=== PATIENT | female | born 1960 | race Caucasian/White ===

== ENCOUNTER 2023-06-15 10:02 | Inpatient (IN) | payer MEDICAID ==
[~2023-06-15] VITALS: Ht 152.4 cm; Wt 67.3 kg
[2023-06-15] MEDS ORDERED: ondansetron/PF 4mg/2ml inj IV ONE (11:35)
[2023-06-15] MEDS ORDERED: pantoprazole 40 MG vial IV ONE (11:35)
[2023-06-15] MEDS ORDERED: morphine 2 MG/ML inj. syringe IV PRN (11:35)
[2023-06-15] MEDS ORDERED: normal saline 1000ML IV soln IVB ONE (11:35)
[2023-06-15] MEDS ORDERED: pantoprazole 40MG/NS 100ML BAG 100 ML IV ONE (11:50)
--- NOTE | 2023-06-15 12:18 | NUR ---
MORPHINE ORD FOR PAIN. PT HAS ALLERGY TO CODIENE AND DOES NOT KNOW IF SHE HAS HAD IT BEFORE. RN NON ADMIN AND NOTIFIED DR MEREDITH. PER DR MEREDITH HOLD MORPHINE AT THIS TIME AND DO NOT ADMIN.
--- NOTE | 2023-06-15 12:33 | NUR ---
LAB AT BEDSIDE COLLECTING BLOOD
[2023-06-15 12:48] LABS: BASOPHILS % (AUTO) 0.2 % (0-1); EOSINOPHILS % (AUTO) 0.1 % (0-6); HEMATOCRIT 41.7 % (35.0-45.0); HEMOGLOBIN 13.9 g/dl (12.0-16.0); LYMPHOCYTES % (AUTO) 5.1 % (21-51); MEAN CORPUSCULAR HEMOGLOBIN 28.7 PG (27.0-31.0); MEAN CORPUSCULAR HGB CONC 33.3 g/dL (33.0-36.5); MEAN CORPUSCULAR VOLUME 86.1 FL (78-98); MEAN PLATELET VOLUME 7.2 FL (7.4-10.4); MONOCYTES # (AUTO) 1.2 X10'3 (0-0.9); MONOCYTES % (AUTO) 6.1 % (2-12); NEUTROPHILS # (AUTO) 17.5 X10'3 (1.8-7.7); NEUTROPHILS % (AUTO) 88.5 % (42-75); PLATELET COUNT 314 X10'3 (140-440); RED BLOOD COUNT 4.84 X10'6 (4.20-5.60); RED CELL DISTRIBUTION WIDTH 14.4 % (11.5-14.5); WHITE BLOOD COUNT 19.8 X10'3 (4.5-11.0)
[2023-06-15 13:10] LABS: ALANINE AMINOTRANSFERASE 20 U/L (12-78); ALBUMIN 3.7 G/DL (3.4-5.0); ALBUMIN/GLOBULIN RATIO 0.9 (1.1-1.5); ALKALINE PHOSPHATASE 114 IU/L (46-116); ANION GAP 9 (8-16); ASPARTATE AMINO TRANSFERASE 25 U/L (10-37); BILIRUBIN,TOTAL 0.6 MG/DL (0.1-1.0); BLOOD UREA NITROGEN 13 MG/DL (7-18); BUN/CREATININE RATIO 13.7 (10.0-20.0); CALCIUM 9.1 MG/DL (8.5-10.1); CHLORIDE 105 MMOL/L (99-107); CREATININE 0.95 MG/DL (0.40-0.90); GLUCOSE 119 MG/DL (70-104); LIPASE 105 U/L (73-393); POTASSIUM 3.9 MMOL/L (3.5-5.1); SODIUM 139 MMOL/L (135-145); TOTAL CARBON DIOXIDE 25.4 MMOL/L (24-32); eCRCL 44 ML/MIN; eGFR 60 ML/MIN
[2023-06-15] MEDS ORDERED: iohexol 300mg/ml 100ml inj. ONE (13:59)
[2023-06-15] MEDS ORDERED: metroNIDAZOLE-Flagyl 500mg/NS 100 ML IV STA (15:00)
[2023-06-15 15:10] LABS: BILIRUBIN,URINE NEGATIVE (Neg); CLARITY,URINE CLEAR (Clear); COLOR,URINE YELLOW (Yellow); GLUCOSE, URINE NEGATIVE (Neg); KETONES,URINE NEGATIVE (Neg); LEUKOCYTE ESTERASE ,URINE NEGATIVE (Neg); NITRITES, URINE NEGATIVE (Neg); OCCULT BLOOD,URINE NEGATIVE (Neg); PH,URINE 5.5 (4.8-8.0); PROTEIN,URINE NEGATIVE (Neg); UROBILINOGEN,URINE 0.2 E.U/dL (0.2-1.0)
[2023-06-15 15:15] LABS: UA COLLECTION TYPE CLN CATCH MIDSTREAM
[2023-06-15] MEDS ORDERED: HYDROcodone/acetaminophen 5mg/325mg tablet PO PRN (17:40)
[2023-06-15] MEDS ORDERED: magnesium 4gm in 100ml NS 100 ML IV PRN (17:40)
[2023-06-15] MEDS ORDERED: ondansetron/PF 4mg/2ml inj IV PRN (17:40)
[2023-06-15] MEDS ORDERED: mag hydrox/Alum hydrox/simeth 30ml oral suspension PO PRN (17:40)
[2023-06-15] MEDS ORDERED: magnesium 2GM in 50ml NS 50 ML IV PRN (17:40)
[2023-06-15] MEDS ORDERED: potassium Cl 40MEQ/1/2NS 520ml 520 ML IV PRN (17:40)
[2023-06-15] MEDS ORDERED: acetaminophen 325mg tablet PO PRN ×2 (17:40)
[2023-06-15] MEDS ORDERED: potassium Cl 20 mEq SR tablet PO PRN ×2 (17:40)
[2023-06-15] MEDS ORDERED: HYDROcodone/acetaminophen 10/325mg tab PO PRN (17:40)
[2023-06-15] MEDS: normal saline 1000ml 1,000 ML IV SCH (19:09)
[2023-06-15] MEDS ORDERED: hydrALAZINE 20mg/ml inj. IV PRN (19:40)
[2023-06-15] MEDS: K and/or MAG REPLACEMENT MC SCH (20:02)
[2023-06-15] MEDS: ciprofloxacin lact 400MG/200ML 200 ML IV SCH (20:31)
[2023-06-15] MEDS: HYDROmorphone inj. 0.5 MG/0.5 ML DISP.SYRIN IV PRN (20:38)
[2023-06-15] MEDS: docusate sod 100mg capsule PO SCH (20:44)
[2023-06-15] MEDS: enoxaparin 40mg/0.4ml syringe SQ SCH (20:45)
--- NOTE | 2023-06-15 22:04 | NUR ---
Rec'd report for STONEY Roberson in the ER.
[2023-06-15 22:30] VITALS: BP 129/44; PULSE 67; RESP 18; TEMP 98.1; O2SAT 97
[2023-06-16] MEDS: metroNIDAZOLE-Flagyl 500mg/NS 100 ML IV SCH ×4 (00:02→23:19)
[2023-06-16] MEDS: HYDROmorphone inj. 0.5 MG/0.5 ML DISP.SYRIN IV PRN ×3 (00:06→20:48)
[2023-06-16] MEDS: normal saline 1000ml 1,000 ML IV SCH ×3 (04:14→23:40)
[2023-06-16 06:00] VITALS: BP 110/54; PULSE 67; RESP 16; TEMP 98.6; O2SAT 96
--- NOTE | 2023-06-16 06:35 | NUR ---
Problems reprioritized. Patient report given, questions answered & plan of care reviewed with JERICHO Archuleta.
[2023-06-16 06:36] LABS: BASOPHILS # (AUTO) 0.1 X10'3 (0-0.2); BASOPHILS % (AUTO) 0.4 % (0-1); EOSINOPHILS # (AUTO) 0.1 X10'3 (0-0.9); EOSINOPHILS % (AUTO) 0.3 % (0-6); HEMATOCRIT 33.5 % (35.0-45.0); HEMOGLOBIN 11.1 g/dl (12.0-16.0); LYMPHOCYTES # (AUTO) 1.7 X10'3 (1.1-4.8); LYMPHOCYTES % (AUTO) 10.4 % (21-51); MEAN CORPUSCULAR HEMOGLOBIN 28.8 PG (27.0-31.0); MEAN CORPUSCULAR VOLUME 87.3 FL (78-98); MEAN PLATELET VOLUME 7.6 FL (7.4-10.4); MONOCYTES # (AUTO) 1.1 X10'3 (0-0.9); NEUTROPHILS # (AUTO) 13.2 X10'3 (1.8-7.7); NEUTROPHILS % (AUTO) 81.9 % (42-75); PLATELET COUNT 244 X10'3 (140-440); RED BLOOD COUNT 3.84 X10'6 (4.20-5.60); RED CELL DISTRIBUTION WIDTH 14.3 % (11.5-14.5); WHITE BLOOD COUNT 16.2 X10'3 (4.5-11.0)
[2023-06-16 07:06] LABS: ALANINE AMINOTRANSFERASE 13 U/L (12-78); ALBUMIN 2.5 G/DL (3.4-5.0); ALBUMIN/GLOBULIN RATIO 0.7 (1.1-1.5); ALKALINE PHOSPHATASE 83 IU/L (46-116); ANION GAP 8 (8-16); ASPARTATE AMINO TRANSFERASE 20 U/L (10-37); BILIRUBIN,TOTAL 0.7 MG/DL (0.1-1.0); BLOOD UREA NITROGEN 9 MG/DL (7-18); CHLORIDE 109 MMOL/L (99-107); GLUCOSE 102 MG/DL (70-104); MAGNESIUM 1.8 MG/DL (1.5-2.4); POTASSIUM 3.7 MMOL/L (3.5-5.1); SODIUM 140 MMOL/L (135-145); TOTAL CARBON DIOXIDE 23.1 MMOL/L (24-32); eCRCL 47 ML/MIN; eGFR 63 ML/MIN
[2023-06-16] MEDS: docusate sod 100mg capsule PO SCH ×2 (07:47→20:38)
[2023-06-16 07:52] VITALS: RESP 18
[2023-06-16] MEDS: K and/or MAG REPLACEMENT MC SCH ×2 (08:00→20:00)
[2023-06-16 10:00] VITALS: BP 108/79; PULSE 70; RESP 16; TEMP 98.7; O2SAT 95
[2023-06-16] MEDS: ciprofloxacin lact 400MG/200ML 200 ML IV SCH ×2 (11:47→20:39)
[2023-06-16] MEDS ORDERED: LEVO25TA7 PO (13:45)
[2023-06-16 18:00] VITALS: BP 126/54; PULSE 65; RESP 16; TEMP 97.6; O2SAT 96
--- NOTE | 2023-06-16 18:15 | NUR ---
Patient in room [facility]. I have received report from Kathe ECHAVARRIA and had the opportunity to ask questions and assume patient care.
[2023-06-16 20:00] VITALS: RESP 16
[2023-06-16] MEDS: enoxaparin 40mg/0.4ml syringe SQ SCH (20:39)
[2023-06-16 22:00] VITALS: BP 119/54; PULSE 71; RESP 16; TEMP 97.8; O2SAT 94
[2023-06-17] VITALS (7 sets, daily range): BP systolic 115–149; BP diastolic 53–70; PULSE 63–73; RESP 15–18; TEMP 97.9–98.5; O2SAT 93–96
[2023-06-17] MEDS: normal saline 1000ml 1,000 ML IV SCH ×2 (03:03→16:24)
[2023-06-17] MEDS: HYDROmorphone inj. 0.5 MG/0.5 ML DISP.SYRIN IV PRN (03:07)
[2023-06-17 06:19] LABS: BASOPHILS # (AUTO) 0.1 X10'3 (0-0.2); BASOPHILS % (AUTO) 0.6 % (0-1); EOSINOPHILS # (AUTO) 0.1 X10'3 (0-0.9); EOSINOPHILS % (AUTO) 0.7 % (0-6); HEMATOCRIT 30.7 % (35.0-45.0); HEMOGLOBIN 10.1 g/dl (12.0-16.0); LYMPHOCYTES # (AUTO) 1.6 X10'3 (1.1-4.8); LYMPHOCYTES % (AUTO) 11.5 % (21-51); MEAN CORPUSCULAR HEMOGLOBIN 28.8 PG (27.0-31.0); MEAN CORPUSCULAR HGB CONC 32.8 g/dL (33.0-36.5); MEAN CORPUSCULAR VOLUME 87.9 FL (78-98); MEAN PLATELET VOLUME 7.3 FL (7.4-10.4); MONOCYTES # (AUTO) 0.9 X10'3 (0-0.9); MONOCYTES % (AUTO) 6.7 % (2-12); NEUTROPHILS # (AUTO) 11.3 X10'3 (1.8-7.7); NEUTROPHILS % (AUTO) 80.5 % (42-75); PLATELET COUNT 226 X10'3 (140-440); RED BLOOD COUNT 3.49 X10'6 (4.20-5.60); RED CELL DISTRIBUTION WIDTH 14.2 % (11.5-14.5)
[2023-06-17 06:32] LABS: ALANINE AMINOTRANSFERASE 9 U/L (12-78); ALBUMIN 2.4 G/DL (3.4-5.0); ALBUMIN/GLOBULIN RATIO 0.7 (1.1-1.5); ALKALINE PHOSPHATASE 74 IU/L (46-116); ANION GAP 10 (8-16); ASPARTATE AMINO TRANSFERASE 17 U/L (10-37); BILIRUBIN,TOTAL 0.5 MG/DL (0.1-1.0); BLOOD UREA NITROGEN 8 MG/DL (7-18); BUN/CREATININE RATIO 9.4 (10.0-20.0); CHLORIDE 108 MMOL/L (99-107); CREATININE 0.85 MG/DL (0.40-0.90); GLUCOSE 87 MG/DL (70-104); MAGNESIUM 1.6 MG/DL (1.5-2.4); POTASSIUM 3.6 MMOL/L (3.5-5.1); SODIUM 138 MMOL/L (135-145); TOTAL CARBON DIOXIDE 19.6 MMOL/L (24-32); TOTAL PROTEIN 5.8 G/DL (6.4-8.2); eCRCL 49 ML/MIN; eGFR 68 ML/MIN
--- NOTE | 2023-06-17 06:54 | NUR ---
Problems reprioritized. Patient report given, questions answered & plan of care reviewed with Kathe ECHAVARRIA.
[2023-06-17] MEDS: K and/or MAG REPLACEMENT MC SCH ×2 (08:00→20:00)
[2023-06-17] MEDS: levoTHYROXINE 25mcg tablet PO SCH (08:37)
[2023-06-17] MEDS: ciprofloxacin lact 400MG/200ML 200 ML IV SCH ×2 (08:37→20:54)
[2023-06-17] MEDS: docusate sod 100mg capsule PO SCH ×2 (08:37→21:03)
[2023-06-17] MEDS: metroNIDAZOLE-Flagyl 500mg/NS 100 ML IV SCH ×3 (11:22→23:41)
[2023-06-17] MEDS: HYDROmorphone/PF 0.2 MG/ML SYRINGE IV PRN ×2 (16:24→20:52)
--- NOTE | 2023-06-17 18:35 | NUR ---
Patient in room [facility]. I have received report from Kathe ECHAVARRIA and had the opportunity to ask questions and assume patient care.
[2023-06-17] MEDS: enoxaparin 40mg/0.4ml syringe SQ SCH (21:05)
[2023-06-18 02:06] VITALS: O2SAT 95
[2023-06-18] MEDS: normal saline 1000ml 1,000 ML IV SCH ×2 (03:04→15:40)
[2023-06-18 06:30] LABS: BASOPHILS # (AUTO) 0.1 X10'3 (0-0.2); BASOPHILS % (AUTO) 0.6 % (0-1); EOSINOPHILS # (AUTO) 0.1 X10'3 (0-0.9); EOSINOPHILS % (AUTO) 1.1 % (0-6); HEMATOCRIT 31.9 % (35.0-45.0); HEMOGLOBIN 10.5 g/dl (12.0-16.0); LYMPHOCYTES # (AUTO) 1.4 X10'3 (1.1-4.8); LYMPHOCYTES % (AUTO) 11.7 % (21-51); MEAN CORPUSCULAR HEMOGLOBIN 28.7 PG (27.0-31.0); MEAN CORPUSCULAR VOLUME 86.9 FL (78-98); MEAN PLATELET VOLUME 7.6 FL (7.4-10.4); MONOCYTES # (AUTO) 0.9 X10'3 (0-0.9); MONOCYTES % (AUTO) 7.4 % (2-12); NEUTROPHILS # (AUTO) 9.8 X10'3 (1.8-7.7); NEUTROPHILS % (AUTO) 79.2 % (42-75); PLATELET COUNT 245 X10'3 (140-440); RED BLOOD COUNT 3.67 X10'6 (4.20-5.60); RED CELL DISTRIBUTION WIDTH 14.2 % (11.5-14.5); WHITE BLOOD COUNT 12.3 X10'3 (4.5-11.0)
--- NOTE | 2023-06-18 06:45 | NUR ---
Problems reprioritized. Patient report given, questions answered & plan of care reviewed with Kathe ECHAVARRIA.
[2023-06-18 06:46] LABS: ALANINE AMINOTRANSFERASE 14 U/L (12-78); ALBUMIN 2.3 G/DL (3.4-5.0); ALBUMIN/GLOBULIN RATIO 0.7 (1.1-1.5); ALKALINE PHOSPHATASE 71 IU/L (46-116); ANION GAP 8 (8-16); ASPARTATE AMINO TRANSFERASE 16 U/L (10-37); BILIRUBIN,TOTAL 0.5 MG/DL (0.1-1.0); BLOOD UREA NITROGEN 7 MG/DL (7-18); BUN/CREATININE RATIO 8.9 (10.0-20.0); CALCIUM 8.2 MG/DL (8.5-10.1); CHLORIDE 108 MMOL/L (99-107); CREATININE 0.79 MG/DL (0.40-0.90); GLUCOSE 96 MG/DL (70-104); MAGNESIUM 1.6 MG/DL (1.5-2.4); POTASSIUM 3.4 MMOL/L (3.5-5.1); SODIUM 138 MMOL/L (135-145); TOTAL CARBON DIOXIDE 22.4 MMOL/L (24-32); TOTAL PROTEIN 5.8 G/DL (6.4-8.2); eCRCL 53 ML/MIN; eGFR 74 ML/MIN
[2023-06-18 07:45] VITALS: RESP 18; O2SAT 95
[2023-06-18] MEDS: K and/or MAG REPLACEMENT MC SCH ×2 (08:00→22:38)
[2023-06-18 08:50] VITALS: RESP 20
[2023-06-18] MEDS: metroNIDAZOLE-Flagyl 500mg/NS 100 ML IV SCH (08:52)
[2023-06-18] MEDS: docusate sod 100mg capsule PO SCH ×2 (10:35→20:00)
[2023-06-18] MEDS: levoTHYROXINE 25mcg tablet PO SCH (10:36)
[2023-06-18] MEDS: ciprofloxacin 250mg tablet PO SCH ×2 (12:41→22:03)
[2023-06-18] MEDS: metroNIDAZOLE 500mg tablet PO SCH (15:56)
[2023-06-18 15:59] LABS: THYROID STIMULATING HORMONE 1.54 ulU/ml (0.34-4.50)
[2023-06-18 18:00] VITALS: BP 155/75; PULSE 70; RESP 20; TEMP 98.6; O2SAT 92
--- NOTE | 2023-06-18 18:35 | NUR ---
Patient in room [facility]. I have received report from Kathe ECHAVARRIA and had the opportunity to ask questions and assume patient care.
--- NOTE | 2023-06-18 18:45 | NUR ---
Patient in room [facility]. I have received report from Kathe ECHAVARRIA and had the opportunity to ask questions and assume patient care.
--- NOTE | 2023-06-18 18:49 | NUR ---
Problems reprioritized. Patient report given, questions answered & plan of care reviewed with Sarika Mcdaniels RN.
[2023-06-18 19:30] VITALS: RESP 20; O2SAT 92
[2023-06-18] MEDS: enoxaparin 40mg/0.4ml syringe SQ SCH (22:02)
[2023-06-18] MEDS ORDERED: potassium Cl 40MEQ/1/2NS 520ml 520 ML IV PRN ×2 (22:20)
[2023-06-18] MEDS ORDERED: magnesium 4gm in 100ml NS 100 ML IV PRN (22:20)
[2023-06-18] MEDS ORDERED: magnesium 2GM in 50ml NS 50 ML IV PRN (22:20)
[2023-06-18] MEDS ORDERED: magnesium Cl slow-release 64mg tablet PO PRN (22:20)
[2023-06-18] MEDS ORDERED: potassium Cl 20 mEq SR tablet PO PRN ×2 (22:20)
[2023-06-18 22:37] VITALS: BP 153/29; PULSE 69; RESP 14; TEMP 98.9; O2SAT 93
[2023-06-19] MEDS: metroNIDAZOLE 500mg tablet PO SCH ×2 (00:16→08:16)
[2023-06-19 00:55] VITALS: O2SAT 92
[2023-06-19] MEDS: normal saline 1000ml 1,000 ML IV SCH ×2 (01:40→08:19)
[2023-06-19 06:00] VITALS: BP 139/58; PULSE 66; RESP 16; TEMP 97.4; O2SAT 95
--- NOTE | 2023-06-19 06:35 | NUR ---
Problems reprioritized. Patient report given, questions answered & plan of care reviewed with Tasha ECHAVARRIA.
[2023-06-19 07:02] LABS: BASOPHILS # (AUTO) 0.1 X10'3 (0-0.2); BASOPHILS % (AUTO) 1.1 % (0-1); EOSINOPHILS # (AUTO) 0.2 X10'3 (0-0.9); EOSINOPHILS % (AUTO) 2.6 % (0-6); HEMATOCRIT 31.4 % (35.0-45.0); HEMOGLOBIN 10.7 g/dl (12.0-16.0); LYMPHOCYTES # (AUTO) 1.5 X10'3 (1.1-4.8); LYMPHOCYTES % (AUTO) 18.7 % (21-51); MEAN CORPUSCULAR HEMOGLOBIN 29.4 PG (27.0-31.0); MEAN CORPUSCULAR VOLUME 86.5 FL (78-98); MEAN PLATELET VOLUME 7.3 FL (7.4-10.4); MONOCYTES # (AUTO) 0.6 X10'3 (0-0.9); MONOCYTES % (AUTO) 7.7 % (2-12); NEUTROPHILS # (AUTO) 5.8 X10'3 (1.8-7.7); NEUTROPHILS % (AUTO) 69.9 % (42-75); PLATELET COUNT 265 X10'3 (140-440); RED BLOOD COUNT 3.63 X10'6 (4.20-5.60); RED CELL DISTRIBUTION WIDTH 13.8 % (11.5-14.5); WHITE BLOOD COUNT 8.2 X10'3 (4.5-11.0)
[2023-06-19 07:36] LABS: ALANINE AMINOTRANSFERASE 17 U/L (12-78); ALBUMIN 2.4 G/DL (3.4-5.0); ALBUMIN/GLOBULIN RATIO 0.7 (1.1-1.5); ALKALINE PHOSPHATASE 76 IU/L (46-116); ANION GAP 9 (8-16); ASPARTATE AMINO TRANSFERASE 22 U/L (10-37); BILIRUBIN,TOTAL 0.4 MG/DL (0.1-1.0); BLOOD UREA NITROGEN 7 MG/DL (7-18); BUN/CREATININE RATIO 9.3 (10.0-20.0); CALCIUM 8.3 MG/DL (8.5-10.1); CHLORIDE 108 MMOL/L (99-107); CREATININE 0.75 MG/DL (0.40-0.90); GLUCOSE 101 MG/DL (70-104); MAGNESIUM 1.5 MG/DL (1.5-2.4); POTASSIUM 3.7 MMOL/L (3.5-5.1); SODIUM 140 MMOL/L (135-145); TOTAL PROTEIN 5.9 G/DL (6.4-8.2); eCRCL 56 ML/MIN; eGFR 78 ML/MIN
[2023-06-19 08:00] VITALS: RESP 16; O2SAT 95
[2023-06-19] MEDS: K and/or MAG REPLACEMENT MC SCH (08:00)
[2023-06-19] MEDS: docusate sod 100mg capsule PO SCH (08:00)
[2023-06-19] MEDS: levoTHYROXINE 25mcg tablet PO SCH (08:16)
[2023-06-19] MEDS: ciprofloxacin 250mg tablet PO SCH (08:16)
[2023-06-19 10:00] VITALS: BP 146/55; PULSE 65; RESP 16; TEMP 97.4; O2SAT 96
[2023-06-19] MEDS ORDERED: METR-159 PO (13:49)
[2023-06-19] MEDS ORDERED: CIPR250T26 PO (13:49)
--- NOTE | 2023-06-19 15:35 | NUR ---
Nutrition Consult "diverticulitis/diverticulosis": Pt admit DX acute infectious colitis probably related to diverticulitis w/ hx diverticulitis/diverticulosis per EMR. Per RN, pt questions regarding diet advancement following discharge today. Pt/SO seen by RD at bedside for written/verbal low and high fiber diet eds w/ RD contact information and fiber content of foods list provided. RD reviewed low fiber diet guidelines and slow advancement to transition to higher fiber diet as tolerated and encouraged pt/SO to contact dietitian's office if further nutrition questions/concerns. Addendum: 06/19/23 at [address] Amended: Links added.
== END 2023-06-19 15:45 | disposition home or self-care (01) | DRG 249 ==
LOC: ER 10:03 → ED HOLD 17:47 → ORTHO 4S 22:19
PROVIDERS: ADMIT Family Medicine; ATTEND Family Medicine
DX: A09 Infectious gastroenteritis and colitis, unspecified (principal); N17.0 Acute kidney failure with tubular necrosis; E03.9 Hypothyroidism, unspecified; E87.6 Hypokalemia; D64.9 Anemia, unspecified; I10 Essential (primary) hypertension; Z88.5 Allergy status to narcotic agent; Z79.899 Other long term (current) drug therapy; Z88.8 Allergy status to other drugs, medicaments and biological substances; Z91.040 Latex allergy status; Z82.3 Family history of stroke; Z90.710 Acquired absence of both cervix and uterus; Z82.49 Family history of ischemic heart disease and other diseases of the circulatory system; Z87.891 Personal history of nicotine dependence
CPT/HCPCS: 36415; 71045; 74177; 80053; 81003; 83605; 83690; 83735; 84443; 85025; 86885; 86900; 86901; 87045; 87046; 87081; 89055; 99285; C9113; G0378; J0744; J1170; J1650; J2405; J3490; J7030; Q9967